=== PATIENT | male | born 1995 | race Caucasian/White ===

== ENCOUNTER 2022-01-10 15:43 | Emergency (ER) | payer OTHER, SELFPAY ==
[2022-01-10 15:48] VITALS: BP 138/79; PULSE 67; RESP 20; TEMP 36.6; O2SAT 100
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
== END 2022-01-10 17:45 | disposition home or self-care (01) ==
PROVIDERS: Emergency Provider Physician Assistant
DX: T75.4XXA Electrocution, initial encounter (principal); W31.89XA Contact with other specified machinery, initial encounter; Y99.0 Civilian activity done for income or pay
CPT/HCPCS: 93005; 93010; 99281; 99282